=== PATIENT | female | born 1965 | race Two or more races ===

== ENCOUNTER 2018-07-10 02:02 | Emergency (ER) | payer OTHER ==
[~2018-07-10] VITALS: Ht 167.6 cm; Wt 74.8 kg
== END 2018-07-10 06:19 | disposition home or self-care (01) ==
LOC: ER 02:02
DX: R04.0 Epistaxis (principal)

== ENCOUNTER 2018-07-14 12:06 | Inpatient (IN) | payer OTHER ==
[~2018-07-14] VITALS: Ht 167.6 cm; Wt 74.4 kg
[2018-07-14] MEDS ORDERED: LISINOPRIL20 MG PO (18:50)
== END 2018-07-16 21:50 | disposition designated cancer center or children's hospital (05) | DRG 812 ==
LOC: ER 12:06 → MEDI 19:05
PROC: 30233N1 Transfusion of Nonautologous Red Blood Cells into Peripheral Vein, Percutaneous Approach (ICD-10-PCS; principal; 2018-07-14)
PROC: BW28ZZZ Computerized Tomography (CT Scan) of Head (ICD-10-PCS; 2018-07-14)
DX: D62 Acute posthemorrhagic anemia (principal); R04.0 Epistaxis; R09.81 Nasal congestion; R51 Headache

== ENCOUNTER → 2019-09-08 | Outpatient (CLI) | payer OTHER ==
[~2019-09-08] MED LIST: LISINOPRIL20 MG PO
== END | disposition home or self-care (01) ==
LOC: RAD 12:14
DX: M54.5 Low back pain (principal); I10 Essential (primary) hypertension; Z01.810 Encounter for preprocedural cardiovascular examination; E03.8 Other specified hypothyroidism; E78.89 Other lipoprotein metabolism disorders; Z72.0 Tobacco use; K70.30 Alcoholic cirrhosis of liver without ascites

== ENCOUNTER 2019-09-15 09:31 | Outpatient (CLI) | payer OTHER | END 2019-09-15 09:33 | disposition home or self-care (01) | LOC: MAMO-SONO 09:31 | DX: I10 Essential (primary) hypertension (principal); M54.5 Low back pain; Z01.810 Encounter for preprocedural cardiovascular examination; E03.8 Other specified hypothyroidism; E78.89 Other lipoprotein metabolism disorders; Z72.0 Tobacco use; K70.30 Alcoholic cirrhosis of liver without ascites; Z12.31 Encounter for screening mammogram for malignant neoplasm of breast ==

== ENCOUNTER 2019-09-19 12:12 | Outpatient (CLI) | payer OTHER | END 2019-09-19 12:20 | disposition home or self-care (01) | LOC: SONOGRAMA 12:12 | DX: M54.5 Low back pain (principal); Z01.810 Encounter for preprocedural cardiovascular examination; I10 Essential (primary) hypertension; E03.8 Other specified hypothyroidism; E78.49 Other hyperlipidemia; Z72.0 Tobacco use; K70.30 Alcoholic cirrhosis of liver without ascites; K80.12 Calculus of gallbladder with acute and chronic cholecystitis without obstruction ==

== ENCOUNTER 2022-01-01 13:21 | Outpatient (CLI) | payer OTHER | END 2022-01-01 13:28 | disposition home or self-care (01) | LOC: RAD 13:21 | PROVIDERS: ATTEND Internal Medicine | DX: I10 Essential (primary) hypertension (principal); M54.50 Low back pain, unspecified; E03.9 Hypothyroidism, unspecified; E78.9 Disorder of lipoprotein metabolism, unspecified; Z72.0 Tobacco use; K70.30 Alcoholic cirrhosis of liver without ascites; K80.12 Calculus of gallbladder with acute and chronic cholecystitis without obstruction ==